=== PATIENT | female | born 1990 | race Caucasian/White ===

== ENCOUNTER 2018-08-05 17:29 | Emergency (ER) | payer OTHER ==
[~2018-08-05] VITALS: Ht 149.9 cm; Wt 48.5 kg
--- NOTE | ~2018-08-05 | EKG ---
[place] [address] ELECTROCARDIOGRAM REPORT Name: MANUEL LOPEZ [id number] Admission: 08/05/18 Attend Phys: Discharge: 08/05/18 Date of : [birth year] Report #: [id number] THIS REPORT FOR: //name// [facility] ED Test Date: 2018-08-05 Test Time: 17:33:28 Pat Name: MANUEL LOPEZ Department: Room: Gender: F Work Order Clerk: GIBSON : 1990 Requested By: Oj Bowers Order Number: [id number] Reading MD: Measurements Intervals [place] Rate: 74 P: 59 CA: 126 QRS: -41 QRSD: 102 T: 5 QT: 379 QTc: 421 Interpretive Statements Sinus rhythm Incomplete RBBB and LAFB No previous ECG available for comparison [email or web address] By: 32 32 Epiphany EpiphanyMD /EPI
[2018-08-05] MEDS ORDERED: FLEXERIL PO (18:18)
[2018-08-05] MEDS ORDERED: HYDROCODON-ACE1 EAC7 PO (18:18)
[2018-08-05 18:20] VITALS: BP 97/60
== END 2018-08-05 18:20 | disposition home or self-care (01) ==
LOC: M.ERS 17:29
DX: R07.89 Other chest pain (principal); Z88.3 Allergy status to other anti-infective agents; Z88.8 Allergy status to other drugs, medicaments and biological substances

== ENCOUNTER → 2018-08-05 | Outpatient (CLI) | payer OTHER ==
[~2018-08-05] MED LIST: FLEXERIL PO; HYDROCODON-ACE1 EAC7 PO
[2018-08-05 16:34] LABS: ABSOLUTE EOSINOPHILS 0.1 thou/uL (0.0-0.7); ABSOLUTE LYMPHOCYTES 1.3 thou/uL (0.8-5.3); ABSOLUTE MONOCYTES 0.4 thou/uL (0.0-1.2); ABSOLUTE NEUTROPHILS 2.6 thou/uL (1.6-8.1); BASOPHILS 0.9 %; EOSINOPHILS 1.2 %; HEMOGLOBIN 12.5 gm/dL (12.0-15.0); LYMPHOCYTES 29.9 %; MCHC 32.9 g/dL (28.0-37.0); MCV 97.2 fL (80.0-100.0); MONOCYTES 9.5 %; MPV 8.2 fl. (7.2-11.1); NUCLEATED RBCS 0 /100WBC; PLATELET COUNT* 202 thou/uL (150-400); POLYS 58.5 %; RBC 3.91 mil/uL (4.20-5.00); RDW-CV 13.1 % (10.5-14.5); WBC 4.4 thou/uL (4.0-11.0)
[2018-08-05 16:48] LABS: ALKALINE PHOSPHATASE 43 U/L (46-116); ANION GAP 6 mmol/L (7-16); BUN 11 mg/dL (7-18); CALCIUM 8.5 mg/dL (8.5-10.1); CHLORIDE 106 mmol/L (98-107); CO2 28 mmol/L (21-32); CREATININE 0.8 mg/dL (0.6-1.3); GLUCOSE 106 mg/dL (70-99); POTASSIUM 3.3 mmol/L (3.5-5.1); SGOT 16 U/L (15-37); SGPT 30 U/L (30-65); SODIUM 140 mmol/L (136-145); TOTAL BILIRUBIN 0.6 mg/dL (<0.1-1.0); TOTAL PROTEIN 6.8 g/dL (6.4-8.2); TROPONIN-I LEVEL <0.06 ng/mL (<0.06)
== END ==
LOC: M.LAB 16:08
PROVIDERS: Family Medicine
DX: R06.02 Shortness of breath (principal); R07.89 Other chest pain

== ENCOUNTER → 2018-08-27 | Outpatient (CLI) | payer OTHER ==
--- NOTE | 2018-08-27 17:59 | 2DMMODE ---
[place] [address] 2 D/M-MODE ECHOCARDIOGRAM Name: MANUEL LOPEZ Room: [facility]#: [id number] Admission: 08/27/18 Attend Phys: Richie Pacheco Discharge: Date of : [birth year] Date of Service: 08/27/18 1759 Report #: [id number] THIS REPORT FOR: //name// APPROVED REPORT Study performed: 08/27/2018 14:24:08 EXAM: Comprehensive 2D, Doppler, and color-flow Echocardiogram Patient Location: Out-Patient Status: routine BSA: 1.40 HR: 62 bpm BP: 118/64 mmHg Other Information Study Quality: Excellent Indications Abnormal ECG Chest Pain 2D Dimensions IVSd: 7.97 (7-11mm) LVOT Diam: 17.80 (18-24mm) LVDd: 39.47 mm PWd: 6.96 (7-11mm) Ascending Ao: 21.92 (22-36mm) LVDs: 27.11 (25-40mm) Aortic Root: 22.83 mm Volumes Left Atrial Volume (Systole) LA ESV Index: 12.90 mL/m2 Aortic Valve AoV Peak Fei.: 1.31 m/s AO Peak Gr.: 6.84 mmHg LVOT Max P.79 mmHg AO Mean Gr.: 3.50 mmHg LVOT Mean P.59 mmHg LVOT Max V: 1.20 m/s AO V2 VTI: 25.68 cm LVOT Mean V: 0.72 m/s AGUSTIN (VTI): 2.44 cm2 LVOT V1 VTI: 25.24 cm Mitral Valve E/A Ratio: 1.55 MV Decel. Time: 180.26 ms MV E Max Fei.: 0.86 m/[place] [address] 2 D/M-MODE ECHOCARDIOGRAM Name: MANUEL LOPEZ Room: [facility]#: [id number] Admission: 08/27/18 Attend Phys: Richie Pacheco Discharge: Date of : 89 Date of Service: 08/27/18 1759 Report #: [id number] MV PHT: 52.28 ms MVA (PHT): 4.21 cm2 TDI E/Lateral E': 4.53 E/Medial E': 6.62 Medial E' Fei.: 0.13 m/s Lateral E' Fei.: 0.19 m/s Pulmonary Valve PV Peak Fei.: 0.97 m/s PV Peak Gr.: 3.73 mmHg Left Ventricle The left ventricle is normal size. There is normal LV segmental wall motion. There is normal left ventricular wall thickness. Left ventricular systolic function is normal. The left ventricular ejection fraction is within the normal range. LVEF is 55-60%. The left ventricular diastolic function is normal. Right Ventricle The right ventricle is normal size. The right ventricular systolic function is normal. Atria The left atrium size is normal. The right atrium size is normal. Aortic Valve The aortic valve is normal in structure. No aortic regurgitation is present. There is no aortic valvular stenosis. Mitral Valve The mitral valve is normal in structure. There is no mitral valve regurgitation noted. No evidence of mitral valve stenosis. Tricuspid Valve The tricuspid valve is normal in structure. There is no tricuspid valve regurgitation noted. Pulmonic Valve The pulmonary valve is normal in structure. Trace pulmonic regurgitation. Great Vessels The aortic root is normal in size. IVC is normal in size and collapses >50% [place] [address] 2 D/M-MODE ECHOCARDIOGRAM Name: MANUEL LOPEZ Room: [facility]#: [id number] Admission: 08/27/18 Attend Phys: Richie Pacheco Discharge: Date of : 89 Date of Service: 08/27/18 1759 Report #: [id number] Pericardium There is no pericardial effusion. <Conclusion> Left ventricular systolic function is normal. The left ventricular ejection fraction is within the normal range. <ELECTRONICALLY SIGNED> By: Power Stiles MD, FACC 08/27/181758 [id number] Power Stiles MD, FAC /INF
== END ==
LOC: M.CRD 14:22
DX: R07.9 Chest pain, unspecified (principal); R94.31 Abnormal electrocardiogram [ECG] [EKG]

== ENCOUNTER → 2020-07-22 | Outpatient (CLI) | payer OTHER | LOC: M.LAB 08:52 | PROVIDERS: ATTEND Orthopaedic Surgery | DX: Z01.812 Encounter for preprocedural laboratory examination (principal); Z20.828 Contact with and (suspected) exposure to other viral communicable diseases ==